=== PATIENT | female | born 1980 | race Caucasian/White ===

== ENCOUNTER 2019-03-19 13:00 | Inpatient (IN) | payer OTHER ==
[2019-03-19] MEDS ORDERED: HYDROmorphone/Normal Saline 15 MG/30 ML PCA IV PRN (15:06)
[2019-03-19] MEDS ORDERED: Naloxone 0.4 MG/ML SDV IV PRN (15:06)
[2019-03-19] MEDS ORDERED: Ondansetron 4 MG/2 ML SDV IVPUSH PRN ×2 (15:06→20:11)
[2019-03-19] MEDS ORDERED: fentaNYL 250 MCG/5 ML SDV ONE (15:39)
[2019-03-19] MEDS ORDERED: Dexamethasone 4 MG/ML SDV ONE (15:40)
[2019-03-19] MEDS ORDERED: Propofol 200 MG/20 ML SDV ONE (15:40)
[2019-03-19] MEDS ORDERED: Ondansetron 4 MG/2 ML SDV ONE (15:40)
[2019-03-19] MEDS ORDERED: Succinylcholine 200 MG/10 ML MDV ONE (15:40)
[2019-03-19] MEDS ORDERED: Sugammadex Sodium 200 MG/2 ML VIAL ONE (15:58)
[2019-03-19] MEDS ORDERED: Ketamine 500 MG/5 ML MDV IV SCH (16:00)
[2019-03-19] MEDS ORDERED: Ropivacaine 40 ML, dexAMETHasone 8 MG, EPINEPHrine 0.4 MG, Sodium Chloride 0.9% 37.6 ML NERVRT SCH ×4 (16:00)
[2019-03-19] MEDS ORDERED: Ketamine 50 MG in Sodium Chloride 0.9% 49.5 ML IV SCH (16:00)
[2019-03-19] MEDS ORDERED: Pantoprazole 40 MG Vial IV ONE (16:00)
[2019-03-19] MEDS ORDERED: Glycopyrrolate 0.2 MG/ML 5 ML MDV ONE (16:27)
[2019-03-19] MEDS ORDERED: Rocuronium 50 MG/5 ML Vial ONE (16:27)
[2019-03-19] MEDS ORDERED: Neostigmine Methylsulfate 1 MG/ML 5 ML Syringe ONE (16:27)
[2019-03-19] MEDS: cefOXitin 2 GM in Sodium Chloride 0.9% 50 ML IV ONE ×2 (16:31→18:04)
[2019-03-19] MEDS ORDERED: hydrOXYzine HCl 100 MG/2 ML SDV IM PRN (20:11)
[2019-03-19] MEDS ORDERED: Metoclopramide 10 MG/2 ML SDV IVPUSH PRN (20:12)
[2019-03-19] MEDS ORDERED: diphenhydrAMINE 50 MG/ML SDV IVPUSH PRN (20:12)
[2019-03-19] MEDS: Dextrose 5%-Lactated Ringers 1,000 ML IV SCH (20:25)
[2019-03-19] MEDS ORDERED: Heparin Sodium 5,000 Units/ML Vial SUBCUT SCH (20:30)
[2019-03-19] MEDS ORDERED: Labetalol 20 MG/4 ML Syringe IVPUSH PRN (20:42)
[2019-03-19] MEDS ORDERED: Acetaminophen Soln 160 MG/5 ML UD Cup PO SCH (20:45)
[2019-03-19] MEDS ORDERED: MVI, Adult with Vitamin K 10 ML, Chromium/Copper/Mang/Selen/Zn 1 ML, Thiamine 200 MG in... IV SCH ×4 (20:45)
[2019-03-19] MEDS: Heparin Sodium 5,000 Units/ML Vial SUBCUT SCH (21:34)
[2019-03-19] MEDS: cefOXitin 2 GM in Sodium Chloride 0.9% 50 ML IV SCH (21:34)
[2019-03-19] MEDS: Acetaminophen Soln 650 MG/20.3 ML UD Cup PO SCH (23:14)
[2019-03-20] MEDS: Dextrose 5%-Lactated Ringers 1,000 ML IV SCH ×2 (03:07→09:23)
[2019-03-20] MEDS ORDERED: Iohexol 647 MG/ML 50 ML SDV PO STA (03:26)
[2019-03-20] MEDS: Acetaminophen Soln 650 MG/20.3 ML UD Cup PO SCH (03:35)
[2019-03-20] MEDS: cefOXitin 2 GM in Sodium Chloride 0.9% 50 ML IV SCH ×2 (03:35→09:22)
--- NOTE | 2019-03-20 04:21 | CRLCR ---
Indication: Postprocedure small-bowel resection. History of Shiela-en-Y gastric bypass. Technique: Abdomen 2 views Comparison: None Findings/Impression: There are 2 submitted images after oral contrast extravasation. No sign of contrast extravasation. Contrast flows freely through the gastric remnant into the small bowel. No abnormality evident. Dictated by Juanjose Woodward MD @ Mar 21 2019 8:55AM Signed by Dr. Juanjose Woodward @ Mar 21 2019 8:58AM
[2019-03-20] MEDS ORDERED: Ondansetron 4 MG Tab.DIS PO PRN (08:09)
--- NOTE | 2019-03-20 08:10 | PCM.SURGPN ---
- General Info Functional Status: Reports: Pain Controlled - Review of Systems General: Reports: No Symptoms HEENT: Reports: No Symptoms Pulmonary: Reports: No Symptoms Cardiovascular: Reports: No Symptoms Gastrointestinal: Reports: Abdominal Pain Genitourinary: Reports: No Symptoms Musculoskeletal: Reports: No Symptoms Skin: Reports: No Symptoms Neurological: Reports: No Symptoms Psychiatric: Reports: No Symptoms Systems Review Comment:: Izabella Taylor is a 38 year old women who is on postoperative day #1 from an exploratory laparotomy with reduction of volvulus. She states that her pain is controlled and she does not have any questions or concerns. Total intake was 1628 mL, total output 970 mL, total oral intake is 200 mL and total intake through IV is 1428 mL. Soto catheter produced an output of 970 mL. Labs show potassium at 3.4, magnesium at 1.6 and albumin at 2.9. Vital signs are stable. - Patient Data Vitals - Most Recent: Last Vital Signs Temp 35.9 C 03/20/19 07:21 Pulse 55 L 03/20/19 07:21 Resp 16 03/20/19 07:21 BP 116/80 03/20/19 07:21 Pulse Ox 97 03/20/19 07:21 Weight - Most Recent: 79.379 kg I&O - Last 24 Hours: Intake & Output 03/19/19 03/20/19 03/20/19 22:59 06:59 14:59 Intake Total 55 1573 Output Total 635 335 Balance -580 1238 Lab Results Last 24 Hrs: Laboratory Results - last 24 hr 03/20/19 03/20/19 03/20/19 Range/Units 04:50 04:50 04:50 WBC 13.1 H (4.5-11.0) K/uL RBC 4.07 (3.30-5.50) M/uL Hgb 12.5 D (12.0-15.0) g/dL Hct 38.2 (36.0-48.0) % MCV 94 (80-98) fL MCH 31 (27-31) pg MCHC 33 (32-36) % Plt Count 167 (150-400) K/uL Neut % (Auto) 88 H (36-66) % Lymph % (Auto) 7 L (24-44) % [place] % (Auto) 5 (2-6) % Eos % (Auto) 0 L (2-4) % Baso % (Auto) 0 (0-1) % Sodium 142 (140-148) mmol/L Potassium 3.4 L (3.6-5.2) mmol/L Chloride 105 (100-108) mmol/L Carbon Dioxide 30 (21-32) mmol/L Anion Gap 10.4 (5.0-14.0) mmol/L BUN 6 L (7-18) mg/dL Creatinine 0.8 (0.6-1.0) mg/dL Est Cr Clr Drug Dosing 77.33 mL/min Estimated GFR (MDRD) > 60 (>60) Glucose 153 H (74-106) mg/dL Calcium 8.9 (8.5-10.1) mg/dL Phosphorus 3.7 (2.5-4.9) mg/dL Magnesium 1.6 L (1.8-2.4) mg/dL Ferritin 99 (8-388) ng/ml Total Bilirubin 0.4 (0.2-1.0) mg/dL AST 16 (15-37) U/L ALT 18 (12-78) U/L Alkaline Phosphatase 87 (46-116) U/L Total Protein 6.2 L (6.4-8.2) g/dL Albumin 2.9 L (3.4-5.0) g/dL Globulin 3.3 (2.3-3.5) g/dL Albumin/Globulin Ratio 0.9 L (1.2-2.2) TSH, Ultra Sensitive 0.046 L (0.358-3.740) uIU/mL Med Orders - Current: Current Medications Acetaminophen (Tylenol) 650 mg PO Q6H [facility] Last Admin: 03/20/19 03:35 Dose: 650 mg Cyanocobalamin (Vitamin B12) 1,000 mcg IM ONETIME ONE Stop: 03/21/19 09:01 Diphenhydramine HCl (Benadryl) 50 mg IVPUSH Q4H PRN PRN Reason: ITCHING Heparin Sodium (Porcine) (Heparin Sodium) 5,000 units SUBCUT Q12H [facility] Last Admin: 03/19/19 21:34 Dose: 5,000 units Hydromorphone HCl (Dilaudid Pier Hand 15 Mg In Ns 30 Ml) 0 mg IV ASDIRECTED PRN; Protocol PRN Reason: CLERICAL STOCK INSPECTOR PAIN CONTROL Last Admin: 03/19/19 15:38 Dose: 15 mg Hydroxyzine HCl (Vistaril) 100 mg IM Q4H PRN PRN Reason: PAIN UNCONTROLLED BY OTHER MED Dextrose/Lactated Ringer's (Dextrose 5%-Lactated Ringers) 1,000 mls @ 175 mls/ hr IV ASDIRECTED [facility] Last Admin: 03/20/19 03:07 Dose: 175 mls/hr Cefoxitin Sodium 2 gm/ Sodium (Chloride) 50 mls @ 100 mls/hr IV Q6H [facility] Stop: 03/20/19 10:29 Last Admin: 03/20/19 03:35 Dose: 100 mls/hr Multivitamins/Minerals 10 ml/Chromium/Copper/Manganese/Seleni/Zn 1 ml/ Thiamine HCl 200 mg/ Dextrose/Lactated Ringer's 1,013 mls @ 175 mls/hr IV DAILY@1200 [facility] Labetalol HCl (Normodyne) 5 mg IVPUSH ASDIRECTED PRN PRN Reason: SBP>160 OR DBP>95 Metoclopramide HCl (Reglan) 10 mg IVPUSH Q6H PRN PRN Reason: NAUSEA, UNCONTROLLED BY ZOFRAN Naloxone HCl (Narcan) 0.1 mg IV ASDIRECTED PRN PRN Reason: decreased respiratory rate Ondansetron HCl (Zofran) 4 mg IVPUSH Q4H PRN PRN Reason: Nausea Pantoprazole Sodium (Protonix Iv) 40 mg IV Q24H [facility] Discontinued Medications Acetaminophen (Tylenol Solution) 650 mg PO Q6H [facility] Last Admin: 03/19/19 21:35 Dose: Not Given Ropivacaine 40 ml/Dexamethasone 8 mg/Epinephrine HCl 0.4 mg/ Sodium Chloride 37.6 ml 0 ml NERVRT ASDIRECTED [facility] Last Admin: 03/19/19 16:32 Dose: 80 syringe Dexamethasone (Dexamethasone) Confirm Administered Dose 4 mg .ROUTE .STK-MED ONE Stop: 03/19/19 15:41 Fentanyl (Sublimaze) Confirm Administered Dose 250 mcg .ROUTE .STK-MED ONE Stop: 03/19/19 15:40 Glycopyrrolate (Robinul) Confirm Administered Dose 1 mg .ROUTE .STK-MED ONE Stop: 03/19/19 16:28 Heparin Sodium (Porcine) (Heparin Sodium) 5,000 units SUBCUT Q12H [facility] Ketamine HCl 50 mg/ Sodium (Chloride) 50 mls @ 15.72 mls/hr IV ASDIRECTED [facility] Cefoxitin Sodium 2 gm/ Sodium (Chloride) 50 mls @ 100 mls/hr IV ONCALL ONE Stop: 03/19/19 16:29 Last Admin: 03/19/19 18:04 Dose: Not Given Multivitamins/Minerals 10 ml/Chromium/Copper/Manganese/Seleni/Zn 1 ml/ Thiamine HCl 200 mg/ Dextrose/Lactated Ringer's 1,013 mls @ 175 mls/hr IV ASDIRECTED [facility] Iohexol (Omnipaque-300) 50 ml PO .ASDIRECTED STA Stop: 03/20/19 03:27 Last Admin: 03/20/19 03:50 Dose: 50 ml Ketamine HCl (Ketalar) 26 mg IV ASDIRECTED [facility] Neostigmine Methylsulfate (Neostigmine) Confirm Administered Dose 5 mg .ROUTE .STK-MED ONE Stop: 03/19/19 16:28 Ondansetron HCl (Zofran) 4 mg IVPUSH Q4H PRN PRN Reason: Nausea Ondansetron HCl (Zofran) Confirm Administered Dose 4 mg .ROUTE .STK-MED ONE Stop: 03/19/19 15:41 Pantoprazole Sodium (Protonix Iv) 40 mg IV ONETIME ONE Stop: 03/19/19 16:01 Last Admin: 03/19/19 15:58 Dose: 40 mg Propofol (Diprivan 20 Ml) Confirm Administered Dose 200 mg .ROUTE .STK-MED ONE Stop: 03/19/19 15:41 Rocuronium [place] (Zemuron) Confirm Administered Dose 100 mg .ROUTE .STK-MED ONE Stop: 03/19/19 16:28 Succinylcholine Chloride (Quelicin) Confirm Administered Dose 200 mg .ROUTE .STK -MED ONE Stop: 03/19/19 15:41 Sugammadex Sodium (Bridion) Confirm Administered Dose 200 mg .ROUTE .STK-MED ONE Stop: 03/19/19 15:59 - Exam Wound/Incisions: Dressing Dry and Intact General: Alert, Oriented Lungs: Clear to Auscultation, Normal Respiratory Effort Cardiovascular: Regular Rate, Regular Rhythm GI/Abdominal Exam: Soft, No Distention Extremities: Normal Inspection Skin: Warm, Intact Psy/Mental Status: Alert - Problem List Review Problem List Initiated/Reviewed/Updated: Yes - My Orders Last 24 Hours: Active Orders 24 hr Category Date Time Status Admission Status [Patient Status] [ADT] Routine ADT 03/19/19 14:40 Active Patient Status [ADT] Routine ADT 03/19/19 19:05 Active Ambulate [RC] ASDIRECTED Care 03/19/19 19:25 Active Antiembolic Devices [RC] .Routine Care 03/19/19 19:25 Active Communication Order [RC] Q4HR Care 03/19/19 19:25 Active Elevate Head of Bed [Head of Bed Elevation] [RC] Care 03/19/19 19:48 Active ASDIRECTED Intake and Output [RC] QSHIFT Care 03/19/19 19:25 Active Notify Provider Intake and Out [RC] ASDIRECTED Care 03/19/19 19:25 Active Oxygen Therapy [RC] PRN Care 03/19/19 19:25 Active Pulse Oximetry [RC] CONTINUOUS Care 03/19/19 19:25 Active RT BiPAP/CPAP [RC] ASDIRECTED Care 03/19/19 19:25 Active RT Incentive Spirometry [RC] Q1HWA Care 03/19/19 19:25 Active Turn, Cough, Deep Breathe [RC] .PRN Care 03/19/19 19:48 Active Up to Chair [RC] ASDIRECTED Care 03/19/19 19:25 Active Vital Signs [RC] Q4H Care 03/19/19 19:25 Active Consult to Bariatric Services [CONS] Routine Cons 03/19/19 19:25 Active Consult to Slurry Control Operator Helper [CONS] Routine Cons 03/19/19 19:25 Active Respiratory Care Assess and Treatment [CONS] Routine Cons 03/19/19 19:25 Active Bariatric Diet [DIET] Diet 03/19/19 Dinner Active Acetaminophen [Tylenol] Med 03/19/19 22:00 Active 650 mg PO Q6H Cyanocobalamin (Vitamin B12) [Vitamin B12] Med 03/21/19 09:00 Once 1,000 mcg IM ONETIME ONE Dextrose 5%-Lactated Ringers 1,000 ml Med 03/19/19 20:15 Active IV ASDIRECTED HYDROmorphone/Normal Saline [Dilaudid CLERICAL STOCK INSPECTOR 15 MG in NS Med 03/19/19 15:06 Active 30 ML] 0 mg IV ASDIRECTED PRN Heparin Sodium Med 03/19/19 20:30 Active 5,000 units SUBCUT Q12H Labetalol [Normodyne] Med 03/19/19 20:42 Active 5 mg IVPUSH ASDIRECTED PRN MVI, Adult with Vitamin K [Infuvite Adult] 10 ml Med 03/20/19 12:00 Active Chromium/Copper/Kadeem/Selen/Zn [Multitrace-5 Concentrate ] 1 ml Thiamine [Vitamin B-1] 200 mg Dextrose 5%-Lactated Ringers 1,000 ml IV DAILY@1200 Metoclopramide [Reglan] Med 03/19/19 20:12 Active 10 mg IVPUSH Q6H PRN Naloxone [Narcan] Med 03/19/19 15:06 Active 0.1 mg IV ASDIRECTED PRN Ondansetron [Zofran] Med 03/19/19 20:11 Active 4 mg IVPUSH Q4H PRN Pantoprazole [ProTONIX IV] Med 03/20/19 16:00 Active 40 mg IV Q24H cefOXitin [Mefoxin] 2 gm Med 03/19/19 22:00 Active Sodium Chloride 0.9% [Normal Saline] 50 ml IV Q6H diphenhydrAMINE [Benadryl] Med 03/19/19 20:12 Active 50 mg IVPUSH Q4H PRN hydrOXYzine HCl [Vistaril] Med 03/19/19 20:11 Active 100 mg IM Q4H PRN Abdominal Binder [OM.PC] Per Unit Routine Oth 03/19/19 19:25 Ordered Air Overlay [Pressure Reduction Mattress] [OM.PC] Oth 03/19/19 19:42 Ordered Routine DME for Inpatients [OM.PC] Per Unit Routine Oth 03/19/19 19:25 Ordered PT Screening [OM.PC] Routine Oth 03/19/19 19:25 Active SCD [Sequential Compression Device] [OM.PC] Routine Oth 03/19/19 15:00 Ordered Sequential Compression Device [OM.PC] Per Unit Routine Oth 03/19/19 19:25 Ordered Specialty Bed [OM.PC] Continuous Oth 03/19/19 19:25 Ordered Resuscitation Status Routine Resus Stat 03/19/19 19:25 Ordered Medication Orders Acetaminophen (Tylenol) 650 mg PO Q6H [facility] Last Admin: 03/20/19 03:35 Dose: 650 mg Admin: 03/19/19 23:14 Dose: 650 mg Cyanocobalamin (Vitamin B12) 1,000 mcg IM ONETIME ONE Stop: 03/21/19 09:01 Diphenhydramine HCl (Benadryl) 50 mg IVPUSH Q4H PRN PRN Reason: ITCHING Heparin Sodium (Porcine) (Heparin Sodium) 5,000 units SUBCUT Q12H [facility] Last Admin: 03/19/19 21:34 Dose: 5,000 units Hydromorphone HCl (Dilaudid Pier Hand 15 Mg In Ns 30 Ml) 0 mg IV ASDIRECTED PRN; Protocol PRN Reason: CLERICAL STOCK INSPECTOR PAIN CONTROL Last Admin: 03/19/19 15:38 Dose: 15 mg Hydroxyzine HCl (Vistaril) 100 mg IM Q4H PRN PRN Reason: PAIN UNCONTROLLED BY OTHER MED Dextrose/Lactated Ringer's (Dextrose 5%-Lactated Ringers) 1,000 mls @ 175 mls/ hr IV ASDIRECTED [facility] Last Admin: 03/20/19 03:07 Dose: 175 mls/hr Infusion: 03/20/19 02:08 Dose: 175 mls/hr Admin: 03/19/19 20:25 Dose: 175 mls/hr Cefoxitin Sodium 2 gm/ Sodium (Chloride) 50 mls @ 100 mls/hr IV Q6H [facility] Stop: 03/20/19 10:29 Last Admin: 03/20/19 03:35 Dose: 100 mls/hr Admin: 03/19/19 21:34 Dose: 100 mls/hr Multivitamins/Minerals 10 ml/Chromium/Copper/Manganese/Seleni/Zn 1 ml/ Thiamine HCl 200 mg/ Dextrose/Lactated Ringer's 1,013 mls @ 175 mls/hr IV DAILY@1200 [facility] Labetalol HCl (Normodyne) 5 mg IVPUSH ASDIRECTED PRN PRN Reason: SBP>160 OR DBP>95 Metoclopramide HCl (Reglan) 10 mg IVPUSH Q6H PRN PRN Reason: NAUSEA, UNCONTROLLED BY ZOFRAN Naloxone HCl (Narcan) 0.1 mg IV ASDIRECTED PRN PRN Reason: decreased respiratory rate Ondansetron HCl (Zofran) 4 mg IVPUSH Q4H PRN PRN Reason: Nausea Pantoprazole Sodium (Protonix Iv) 40 mg IV Q24H [facility] - Assessment Assessment (Free Text/Narrative):: I. 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 Exploratory laparotomy with: a) reduction of small bowel volvulus and closure of internal hernia b) small bowel resection plus c) enteroenterostomy to restore lucius en y anatomy Date of surgery 03/19/2019. Surgeon: Pepe Blancas MD - Plan Plan (Free Text/Narrative):: 1. Initiate a step 3 diet 2. Initiate PO pain medication, Percocet 325-5, 1-2 tablets every 4 hours or as needed 3. Recheck as needed or in the AM
[2019-03-20] MEDS ORDERED: Potassium Chloride Riders 40 MEQ in Premix Bag 1 BAG IV ONE (08:29)
[2019-03-20] MEDS: Heparin Sodium 5,000 Units/ML Vial SUBCUT SCH ×2 (09:21→21:32)
[2019-03-20] MEDS: Magnesium Sulfate/Water 2 GM in Premix Bag 1 BAG IV SCH ×3 (09:22→21:30)
[2019-03-20] MEDS: Acetaminophen/oxyCODONE 325-5 MG Tab PO PRN ×4 (09:29→23:37)
[2019-03-20] MEDS: Potassium Chloride 20 MEQ, Lidocaine 1% 2 ML in Sodium Chloride 0.9% 100 ML IV SCH ×2 (10:08→12:38)
[2019-03-20] MEDS ORDERED: MVI, Adult with Vitamin K 10 ML, Chromium/Copper/Mang/Selen/Zn 1 ML, Thiamine 200 MG in... IV SCH ×8 (12:00)
[2019-03-20] MEDS: Cyclobenzaprine 10 MG Tab PO PRN ×2 (13:02→23:38)
[2019-03-20] MEDS: Levothyroxine 100 MCG Tab PO SCH (13:45)
[2019-03-20] MEDS ORDERED: Pantoprazole 40 MG Vial IV SCH (16:00)
[2019-03-21] MEDS: Magnesium Sulfate/Water 2 GM in Premix Bag 1 BAG IV SCH ×2 (03:06→08:28)
[2019-03-21] MEDS: Dextrose 5%-Lactated Ringers 1,000 ML IV SCH (03:07)
[2019-03-21] MEDS: Acetaminophen/oxyCODONE 325-5 MG Tab PO PRN (05:07)
[2019-03-21] MEDS: Levothyroxine 100 MCG Tab PO SCH (07:09)
[2019-03-21 07:35] VITALS: BP 105/68
[2019-03-21] MEDS: Heparin Sodium 5,000 Units/ML Vial SUBCUT SCH ×2 (08:29→08:39)
[2019-03-21] MEDS ORDERED: Cyanocobalamin (Vitamin B12) 1,000 MCG/ML SDV IM ONE (09:00)
--- NOTE | 2019-03-21 14:55 | DISCH ---
ADMISSION DIAGNOSES: High grade partial small bowel obstruction, status post Shiela-en-Y gastric bypass surgery, unspecified surgical malabsorption, B12 deficiency, back pain, fatigue, thyroidectomy resulting in hypothyroidism, headache, tobacco abuse, joint pain, papillary thyroid carcinoma, and sleep apnea. DISCHARGE DIAGNOSES: Exploratory laparotomy with: 1. Reduction of small bowel volvulus and closure of internal hernia. 2. Small-bowel resection. 3. Enteroenterostomy to restore Shiela-en-Y anatomy for small bowel obstruction secondary to small bowel volvulus, malrotation requiring small bowel resection plus secondary enteroenterostomy to restore Shiela limb anatomy. Date of surgery: 03/19/2019. Surgeon: Pepe Blancas MD. HISTORY: Izabella Taylor is a 38-year-old female who was transferred by ambulance from [place], [place] on 03/19/2019, with a high-grade small-bowel obstruction. After preoperative evaluation and discussion of possible risks and possible complications, she wished to proceed with surgical procedure. HOSPITAL COURSE: Izabella had her surgery on 03/19/2019. She had no operative complications. On postoperative day #1, she was started on a step 3 gastric bypass diet, LIFE SCIENCE TAXONOMIST was discontinued, and she was started on Percocet 5/325 mg 1 to 2 tablets every 4 hours p.r.n. pain. On postoperative day #2, her activity was good. She had good oral intake and output was adequate. Tolerated a step 3 diet well. Vital signs were stable. She was ambulating, using her incentive spirometer. She received dietary instruction and she was able to be discharged to home. PHYSICAL EXAMINATION: GENERAL: Izabella Taylor is a 38-year-old female, alert, orientated. VITAL SIGNS: Height is 5 feet 3 inches, weight is 175 pounds. BMI is 31. HEENT: Negative. NECK: Supple. HEART: Regular rate and rhythm. LUNGS: Clear. ABDOMEN: [place] intact. Abdominal binder is on. EXTREMITIES: Without peripheral edema. DISPOSITION: Discharged to home. CONDITION: Stable and improving. FOLLOWUP: With Altagracia Gary PA-C, on 03/26/2019 at 9:45 a.m. at [place], [place]. HOME MEDICATIONS: 1. Percocet 5/325 mg 1 to 2 every 4 hours p.r.n. pain #42. 2. Flexeril 10 mg p.o. q.6 hours p.r.n. muscle spasms #30. 3. Synthroid 800 mcg p.o. before breakfast #. 4. Topamax 50 mg p.o. daily. 5. She is to resume her routine bariatric vitamins and supplements. DISCHARGE DIET: Step 3 gastric bypass diet. Drink 8 to 10 glasses of water a day. ACTIVITY: No lifting greater than 10 pounds for 6 weeks. Walk at least 6 times daily inside your home. Driving: Do not drive for 1 week and while on narcotic pain medication. Shower/bathing: May shower. Keep operative site clean and dry. Wear abdominal binder for 2 weeks and then as tolerated. Notify provider if any fever, increased pain, nausea, or vomiting. Use incentive spirometer 10 times every hour while awake for 1 week.
--- NOTE | 2019-03-25 08:17 | OR ---
DATE OF PROCEDURE: 03/19/2019 PREOPERATIVE DIAGNOSIS: Small bowel obstruction. POSTOPERATIVE DIAGNOSIS: Small bowel obstruction secondary to small bowel volvulus with small bowel configuration requiring small bowel resection and secondary enteroenterostomy for cheondoism of Shiela-en-Y small bowel anatomy. PROCEDURE PERFORMED: Exploratory laparotomy with: 1. Reduction of small bowel volvulus and closure of internal hernia (89100). 2. Small bowel resection (66653). 3. Secondary enteroenterostomy for cheondoism of Shiela-en-Y small bowel anatomy (23076). ANESTHESIA: General. ASSISTANTS: 1. Altagracia Gary PA-C. 2. NADEEM Rangel. INDICATION FOR PROCEDURE: This is a 38-year-old female, status post previous Shiela-en-Y gastric bypass, presenting with picture of small-bowel obstruction. She was seen initially in [facility] in [place] and was transferred here for treatment at a bariatric Center. On review of the CAT scan, there was some suggestion of possible small bowel volvulus, but certainly there is a high-grade obstruction. The plan is to proceed with an open laparotomy and release of small bowel obstruction, possible small bowel resection, and the potential risks of the procedure including bleeding, infection, injury to underlying viscera, possible recurrence of the bowel obstruction problem over time were all reviewed, and the patient wishes to proceed. DETAILS OF PROCEDURE: The patient was taken to the operating room and placed in a supine position. After general endotracheal anesthesia was induced, a Soto catheter was inserted and the abdomen was prepped and draped. A midline incision from the umbilicus roughly a handsbreadth toward the xiphoid was made and carried down through the full-thickness of the abdominal wall. Upon entering the peritoneal cavity, a segment of the small bowel was noted to have a slightly dusky appearance, consistent with some venous hypertension, although the bowel was otherwise viable in appearance. As one traced down the anatomy, the patient appeared to have a volvulus underneath an area behind the Shiela limb. As this was reduced, we were at no point able to get a satisfactory or complete reduction of the area of the jejunojejunostomy, due to edema and tightness in that area, and given that, that area was then resected with the components of small bowel being divided with AMAIRANI [place] loads and underlying mesentery with mesenteric loads. This then allowed re-orientation of the small bowel in a satisfactory position. Initial [id number] enteroenterostomy between what had been the proximal common limb to the distal Shiela limb was accomplished with internal firing of the Endo-AMAIRANI 60 mm stapler. Common opening was then closed transversely with same stapler and the angles anastomosed and mesenteric defect approximated with some 0 Vicryl stitch. The Shiela-en-Y configuration was then reestablished with the anastomosis between the end of the biliopancreatic limb and the small bowel roughly 20 cm distal to the original anastomosis. This was done with same sequence of staplers, the angles anastomosed, and this anastomosis reinforced with some 3-0 Vicryl stitch. The mesenteric defect underneath the Shiela limb and then secondary one identified between the layers of the jejunojejunostomy were then both closed with running 2-0 silk stitch. The abdomen was irrigated with antibiotic- containing saline solution. The patient had satisfactory omentum to cover the incision. This was brought down underneath the incision, which was then closed with a #2 Vicryl stitch, along with two layers of 3-0 Vicryl stitch to subcutaneous tissue and becky for the skin. Prior to closure, bilateral transversus abdominis plane blocks were also then placed and dressing applied. The patient was taken to the recovery room in satisfactory condition. Physician assistant professor of geography, Altagracia Gary, played an essential role in assisting in this case, helping to position the patient, retract structures as needed as well as suturing and cutting sutures when indicated. Her presence improved patient safety and decreased the operative time. Pepe Blancas MD /[id number]
== END 2019-03-21 09:25 | disposition home or self-care (01) | DRG 330 ==
LOC: JP.MS 13:00
PROVIDERS: ADMIT Surgery; ATTEND Surgery
PROC: 0WQF0ZZ Repair Abdominal Wall, Open Approach (ICD-10-PCS; principal; 2019-03-19)
PROC: 0DB80ZZ Excision of Small Intestine, Open Approach (ICD-10-PCS; principal; 2019-03-19)
DX: K56.600 Partial intestinal obstruction, unspecified as to cause (principal); K91.2 Postsurgical malabsorption, not elsewhere classified; K56.2 Volvulus; E53.8 Deficiency of other specified B group vitamins; M54.9 Dorsalgia, unspecified; K46.9 Unspecified abdominal hernia without obstruction or gangrene; E89.0 Postprocedural hypothyroidism; G47.30 Sleep apnea, unspecified; F17.210 Nicotine dependence, cigarettes, uncomplicated; E66.9 Obesity, unspecified; Z68.31 Body mass index [BMI] 31.0-31.9, adult; Z90.710 Acquired absence of both cervix and uterus; Z91.048 Other nonmedicinal substance allergy status; Z91.011 Allergy to milk products; Z98.84 Bariatric surgery status; Z85.850 Personal history of malignant neoplasm of thyroid
CPT/HCPCS: 36415; 74240; 80053; 82728; 83735; 84100; 84443; 85025; 88307; 94762; A9270-GY; C9113; C9399; J0171; J0330; J0694; J1100; J1170; J1644; J2001; J2405; J2704; J2710; J2795; J3010; J3410; J3411; J3420; J3475; J3480; J3490; J7030; J7042; J7050; Q9967